=== PATIENT | male | born 1975 | race Hispanic/Latino ===

== ENCOUNTER 2021-03-21 01:13 | Emergency (ER) | payer SELFPAY ==
[~2021-03-21] VITALS: Ht 165.1 cm; Wt 108.9 kg
[2021-03-21] MEDS ORDERED: ASPIRIN 81 MG CHEW TAB PO STA (01:20)
[2021-03-21] MEDS ORDERED: HYDROCODONE/APAP 5MG-325MG TAB PO ONE (01:30)
[2021-03-21 01:39] LABS: BASOPHILS # (AUTO) 0.1 (0.0-0.1); BASOPHILS % 0.9 % (0.0-1.0); EOSINOPHILS # (AUTO) 0.4 (0.0-0.4); EOSINOPHILS % 2.9 % (0.0-6.0); HEMATOCRIT 39.2 % (38.2-49.6); HEMOGLOBIN 12.8 g/dL (14.0-18.0); LYMPHOCYTES # (AUTO) 5.2 (1.0-3.2); LYMPHOCYTES % 36.3 % (18.0-39.1); MEAN CORPUSCULAR HEMOGLOBIN 28.1 pg (28-32); MEAN CORPUSCULAR HGB CONC 32.7 g/dL (31-35); MEAN CORPUSCULAR VOLUME 86.2 fL (81-99); MONOCYTES # (AUTO) 1.3 (0.2-0.8); MONOCYTES % 8.9 % (4.4-11.3); NEUTROPHILS # (AUTO) 7.2 (2.1-6.9); NEUTROPHILS % 50.2 % (38.7-80.0); PLATELET COUNT 377 x10e3/uL (140-360); RED BLOOD COUNT 4.55 x10e6/uL (4.3-5.7); RED CELL DISTRIBUTION WIDTH 13.1 % (11.7-14.4)
[2021-03-21 01:43] LABS: INR 0.97; PROTHROMBIN TIME 13.3 seconds (11.9-14.5)
[2021-03-21 01:44] LABS: PARTIAL THROMBOPLASTIN TIME 32.7 seconds (23.8-35.5)
[2021-03-21 01:54] LABS: ALANINE AMINOTRANSFERASE 17 IU/L (0-55); ALBUMIN 3.4 g/dL (3.5-5.0); ALBUMIN/GLOBULIN RATIO 0.9 (0.8-2.0); ALKALINE PHOSPHATASE 106 IU/L (40-150); ANION GAP 12.5 mmol/L (8-16); BLOOD UREA NITROGEN 8 mg/dL (7-26); BUN/CREATININE RATIO 8 (6-25); CALCIUM 8.9 mg/dL (8.4-10.2); CARBON DIOXIDE 27 mmol/L (22-29); CHLORIDE 107 mmol/L (98-107); CREATINE KINASE 326 IU/L (30-200); CREATININE, SERUM 1.06 mg/dL (0.72-1.25); EST GLOMERULAR FILTRATION RATE 75 ML/MIN (60-); GLUCOSE 109 mg/dL (74-118); POTASSIUM 3.5 mmol/L (3.5-5.1); SODIUM 143 mmol/L (136-145)
[2021-03-21] MEDS ORDERED: AUGMENTIN 875-1 EACH PO (02:24)
[2021-03-21] MEDS ORDERED: TESSALON PERLE100 MG PO (02:24)
[2021-03-21] MEDS ORDERED: IBUPROFEN600 MG PO (02:24)
[2021-03-21 02:48] VITALS: BP 129/75
== END 2021-03-21 02:51 | disposition home or self-care (01) ==
LOC: ER 01:20
DX: R07.9 Chest pain, unspecified (principal); R06.00 Dyspnea, unspecified; H66.93 Otitis media, unspecified, bilateral; J06.9 Acute upper respiratory infection, unspecified
CPT/HCPCS: 36415; 71045; 80053; 82550; 82553; 83880; 84484; 85025; 85610; 85730; 99284; U0002

== ENCOUNTER 2022-01-11 22:40 | Observation (INO) | payer OTHER ==
[~2022-01-11] VITALS: Ht 165.1 cm; Wt 106.6 kg
[~2022-01-11 22:40] MED LIST: AUGMENTIN 875-1 EACH PO; IBUPROFEN600 MG PO; TESSALON PERLE100 MG PO
[2022-01-11 23:18] LABS: BASOPHILS # (AUTO) 0.1 (0.0-0.1); BASOPHILS % 0.7 % (0.0-1.0); EOSINOPHILS # (AUTO) 0.2 (0.0-0.4); EOSINOPHILS % 2.1 % (0.0-6.0); HEMATOCRIT 42.7 % (38.2-49.6); HEMOGLOBIN 14.1 g/dL (14.0-18.0); LYMPHOCYTES # (AUTO) 4.5 (1.0-3.2); MEAN CORPUSCULAR HEMOGLOBIN 28.8 pg (28-32); MEAN CORPUSCULAR VOLUME 87.3 fL (81-99); MONOCYTES # (AUTO) 1.2 (0.2-0.8); MONOCYTES % 11.4 % (4.4-11.3); NEUTROPHILS # (AUTO) 4.5 (2.1-6.9); NEUTROPHILS % 42.5 % (38.7-80.0); PLATELET COUNT 290 x10e3/uL (140-360); RED BLOOD COUNT 4.89 x10e6/uL (4.3-5.7); RED CELL DISTRIBUTION WIDTH 13.4 % (11.7-14.4)
[2022-01-11 23:35] LABS: ALANINE AMINOTRANSFERASE 36 IU/L (0-55); ALBUMIN 3.6 g/dL (3.5-5.0); ALBUMIN/GLOBULIN RATIO 0.9 (0.8-2.0); ALKALINE PHOSPHATASE 136 IU/L (40-150); ANION GAP 12.4 mmol/L (8-16); BLOOD UREA NITROGEN 11 mg/dL (7-26); BUN/CREATININE RATIO 12 (6-25); CARBON DIOXIDE 27 mmol/L (22-29); CHLORIDE 105 mmol/L (98-107); CREATINE KINASE 123 IU/L (30-200); CREATININE, SERUM 0.95 mg/dL (0.72-1.25); GLUCOSE 121 mg/dL (74-118); POTASSIUM 3.4 mmol/L (3.5-5.1); SODIUM 141 mmol/L (136-145)
[2022-01-12] VITALS (8 sets, daily range): BP systolic 112–137; BP diastolic 61–99
[2022-01-12] MEDS ORDERED: ASPIRIN 81 MG CHEW TAB PO ONE (00:45)
[2022-01-12] MEDS ORDERED: NORVASC5 MG PO (03:05)
[2022-01-12] MEDS ORDERED: LOSARTAN POTASS25 MG PO (03:06)
[2022-01-12] MEDS ORDERED: HYDROCHLOROTH12.5 MG PO (03:07)
[2022-01-12 07:32] LABS: CREATINE KINASE 107 IU/L (30-200)
[2022-01-12 17:14] LABS: CREATINE KINASE 107 IU/L (30-200)
[2022-01-12] MEDS ORDERED: POTASSIUM CHLORIDE 20 MEQ TAB CR PO ONE (19:35)
[2022-01-13] VITALS: BP 108/63
[2022-01-13 04:00] VITALS: BP 127/70
[2022-01-13 05:26] LABS: BASOPHILS # (AUTO) 0.1 (0.0-0.1); BASOPHILS % 0.8 % (0.0-1.0); EOSINOPHILS # (AUTO) 0.3 (0.0-0.4); HEMATOCRIT 42.5 % (38.2-49.6); HEMOGLOBIN 13.8 g/dL (14.0-18.0); LYMPHOCYTES # (AUTO) 3.7 (1.0-3.2); LYMPHOCYTES % 39.9 % (18.0-39.1); MEAN CORPUSCULAR HEMOGLOBIN 28.7 pg (28-32); MEAN CORPUSCULAR HGB CONC 32.5 g/dL (31-35); MEAN CORPUSCULAR VOLUME 88.4 fL (81-99); MONOCYTES % 10.8 % (4.4-11.3); NEUTROPHILS # (AUTO) 4.2 (2.1-6.9); NEUTROPHILS % 45.2 % (38.7-80.0); PLATELET COUNT 264 x10e3/uL (140-360); RED BLOOD COUNT 4.81 x10e6/uL (4.3-5.7); RED CELL DISTRIBUTION WIDTH 13.4 % (11.7-14.4)
[2022-01-13 05:45] LABS: ANION GAP 12.1 mmol/L (8-16); CREATININE, SERUM 0.78 mg/dL (0.72-1.25); POTASSIUM 4.1 mmol/L (3.5-5.1)
[2022-01-13 08:04] VITALS: BP 122/86
[2022-01-13 10:52] VITALS: BP 127/84
== END 2022-01-13 13:20 | disposition home or self-care (01) ==
LOC: ER 22:46 → ERHOLD 01-12 00:45 → MED/SURG 01-12 02:16
PROVIDERS: ADMIT Internal Medicine; ATTEND Internal Medicine
DX: I49.3 Ventricular premature depolarization (principal); I10 Essential (primary) hypertension; Z87.891 Personal history of nicotine dependence; I51.7 Cardiomegaly; E87.6 Hypokalemia; R73.9 Hyperglycemia, unspecified; Z20.822 Contact with and (suspected) exposure to COVID-19
CPT/HCPCS: 0223U; 36415 ×3; 71045; 80048; 80053; 82550 ×2; 82553 ×2; 83880; 84484 ×2; 85025 ×2; 93005; 93306; 94799; 99284; G0378 ×2